=== PATIENT | female | born 1960 | race African-American/Black ===

== ENCOUNTER 2023-03-05 14:58 | Inpatient (IN) | payer OTHER ==
[2023-03-05 17:01] LABS: BASO % 0.8 % (0-2.0); EOS % 0.6 % (0-4.5); HEMATOCRIT 46.7 % (32.4-45.2); HEMOGLOBIN 14.4 GM/dL (10.7-15.3); LYMPH % 10.6 % (8-40); MCHC 30.8 g/dl (32.0-36.0); MEAN CELL VOLUME 87.4 fl (80-96); MONO % 11.5 % (3.8-10.2); NEUT % 76.5 % (42.8-82.8); PLATELET COUNT 137 10^3/uL (134-434); RBC 5.34 M/mm3 (3.60-5.2); WHITE BLOOD COUNT 4.9 K/mm3 (4.0-10.0)
[2023-03-05 17:03] LABS: INR 1.89 (0.83-1.09); PROTHROMBIN TIME (PATIENT) 21.8 SEC (9.7-13.0)
[2023-03-05 17:06] LABS: ACTIVATED PTT 32.8 SECONDS (25.2-36.5)
[2023-03-05 17:17] LABS: POTASSIUM 3.8 mmol/L (3.5-5.1)
[2023-03-05 17:19] LABS: CALCIUM 8.7 mg/dL (8.5-10.1)
[2023-03-05 17:20] LABS: ALBUMIN 2.4 g/dl (3.4-5.0); BLOOD UREA NITROGEN 8.1 mg/dL (7-18)
[2023-03-05 17:23] LABS: CREATININE 0.9 mg/dL (0.55-1.3)
[2023-03-05 17:24] LABS: BILIRUBIN,TOTAL 2.4 mg/dL (0.2-1); TOT PROT 7.9 g/dl (6.4-8.2)
[2023-03-05 17:28] LABS: N-TERMINAL BNP 1160.8 pg/ml (5-125)
[2023-03-05] MEDS ORDERED: AZITHROMYCIN IVPB 500 MG in DEXTROSE 5%-WATER - 250 ML IVPB ONE (18:16)
[2023-03-05] MEDS ORDERED: CEFTRIAXONE 1,000 MG in DEXTROSE 5%-WATER - 50 ML IVPB ONE (18:16)
[2023-03-05] MEDS ORDERED: CEFTRIAXONE 1 GM/50 ML BAG ONE (19:55)
[2023-03-05] MEDS ORDERED: FUROSEMIDE 40 MG/4 ML INJECTABLE VIAL IVPUSH ONE (20:33)
[2023-03-05] MEDS ORDERED: SODIUM CHLORIDE 0.9% 500 ML INFUS.BAG IV ONE (20:34)
[2023-03-05] MEDS ORDERED: FUROSEMIDE 40 MG/4 ML INJECTABLE VIAL ONE (20:42)
[2023-03-05] MEDS ORDERED: AZITHROMYCIN IVPB 500 MG/250 ML BAG IVPB ONE (20:42)
[2023-03-06 01:31] LABS: EPI CELLS >36 /uL (0-25.1); HYALINE CASTS 11 /uL (0-3.1); PH,URINE 5.5 (5.0-8.0); URINE APPEARANCE CLOUDY; URINE BACTERIA 53 /uL (0-1359); URINE BILIRUBIN 1+ (NEGATIVE); URINE COLOR DK YELLOW; URINE GLUCOSE (UA) NEGATIVE (NEGATIVE); URINE KETONE NEGATIVE (NEGATIVE); URINE LEUK ESTERASE 2+ (NEGATIVE); URINE NITRITE NEGATIVE (NEGATIVE); URINE PROTEIN 1+ (NEGATIVE); URINE RBC 51 /uL (0-23.9); URINE WBC 572 /uL (0-25.8)
[2023-03-06 03:44] LABS: YEAST NONE SEEN (NEGATIVE)
[2023-03-06 06:27] LABS: BASO % 0.3 % (0-2.0); EOS % 0.4 % (0-4.5); HEMATOCRIT 44.2 % (32.4-45.2); HEMOGLOBIN 13.8 GM/dL (10.7-15.3); LYMPH % 10.5 % (8-40); MCH 27.3 pg (25.7-33.7); MCHC 31.1 g/dl (32.0-36.0); MEAN CELL VOLUME 87.6 fl (80-96); MEAN PLT VOLUME 8.9 fl (7.5-11.1); MONO % 12.7 % (3.8-10.2); NEUT % 76.1 % (42.8-82.8); PLATELET COUNT 129 10^3/uL (134-434); RBC 5.04 M/mm3 (3.60-5.2); RDW 18.5 % (11.6-15.6)
[2023-03-06 06:49] LABS: POTASSIUM 3.1 mmol/L (3.5-5.1)
[2023-03-06 06:55] LABS: CALCIUM 8.9 mg/dL (8.5-10.1); MAGNESIUM 1.6 mg/dL (1.8-2.4)
[2023-03-06 06:56] LABS: ALBUMIN 2.4 g/dl (3.4-5.0)
[2023-03-06 06:58] LABS: CREATININE 0.8 mg/dL (0.55-1.3); PHOSPHOROUS 4.1 mg/dL (2.5-4.9)
[2023-03-06 07:00] LABS: BILIRUBIN,TOTAL 2.4 mg/dL (0.2-1); TOT PROT 7.4 g/dl (6.4-8.2)
[2023-03-06] MEDS ORDERED: AZITHROMYCIN IVPB 500 MG/250 ML BAG IVPB ONE (09:37)
[2023-03-06] MEDS ORDERED: CEFTRIAXONE 1 GM/50 ML BAG ONE (09:37)
[2023-03-06] MEDS: CEFTRIAXONE 1 GM in DEXTROSE 5%-WATER - 50 ML IVPB SCH (09:45)
[2023-03-06] MEDS ORDERED: POTASSIUM CHLORIDE TABS 20 MEQ TABLET.ER (FP) PO ONE ×2 (10:06→11:25)
[2023-03-06] MEDS ORDERED: MAGNESIUM 2GM/50ML STERILE WATER IVPB IVPB ONE (10:06)
[2023-03-06] MEDS: AZITHROMYCIN IVPB 500 MG/250 ML BAG IVPB SCH (10:12)
[2023-03-06] MEDS ORDERED: MAGNESIUM SULFATE IN WATER 2 GM/50 ML IVPB IVPB ONE (11:25)
[2023-03-06 14:59] VITALS: BMI 26.4
[2023-03-06] MEDS ORDERED: ALBUTEROL SO4 0.083% IH SOL 2.5 MG/3 ML VIAL.NEB. NEB PRN (16:11)
[2023-03-06] MEDS: ALBUTEROL SO4 2.5/IPRATROPIUM 0.5 INH SOL 3 ML VIAL.NEB. NEB SCH (20:12)
[2023-03-06] MEDS: ENOXAPARIN NA (PORCINE) 80 MG/0.8 ML DISP.SYRIN SQ SCH (21:21)
[2023-03-06] MEDS: methylPREDNISolone NA SUCC 40 MG/1 ML VIAL IVPUSH SCH (21:24)
[2023-03-07] MEDS: ALBUTEROL SO4 2.5/IPRATROPIUM 0.5 INH SOL 3 ML VIAL.NEB. NEB SCH ×2 (07:30→20:18)
[2023-03-07 07:51] LABS: POTASSIUM 4.4 mmol/L (3.5-5.1)
[2023-03-07 07:53] LABS: CALCIUM 9.2 mg/dL (8.5-10.1)
[2023-03-07 07:54] LABS: ALBUMIN 2.3 g/dl (3.4-5.0); BLOOD UREA NITROGEN 9.6 mg/dL (7-18)
[2023-03-07 07:57] LABS: CREATININE 0.8 mg/dL (0.55-1.3)
[2023-03-07 07:58] LABS: TOT PROT 7.5 g/dl (6.4-8.2)
[2023-03-07 07:59] LABS: BILIRUBIN,TOTAL 1.9 mg/dL (0.2-1)
[2023-03-07 08:01] LABS: INR 1.59 (0.83-1.09); PROTHROMBIN TIME (PATIENT) 18.4 SEC (9.7-13.0)
[2023-03-07 08:32] LABS: BASO % 0.1 % (0-2.0); HEMATOCRIT 47.7 % (32.4-45.2); HEMOGLOBIN 14.4 GM/dL (10.7-15.3); MCH 26.7 pg (25.7-33.7); MCHC 30.1 g/dl (32.0-36.0); MEAN CELL VOLUME 88.6 fl (80-96); MEAN PLT VOLUME 9.3 fl (7.5-11.1); MONO % 3.5 % (3.8-10.2); NEUT % 83.4 % (42.8-82.8); PLATELET COUNT 108 10^3/uL (134-434); RBC 5.39 M/mm3 (3.60-5.2); RDW 18.6 % (11.6-15.6); WHITE BLOOD COUNT 2.8 K/mm3 (4.0-10.0)
[2023-03-07] MEDS ORDERED: METOPROLOL TARTRATE 5 MG/5 ML VIAL IVPUSH ONE (09:25)
[2023-03-07] MEDS ORDERED: cefTRIAXone SODIUM 1 GM VIAL ONE (09:45)
[2023-03-07] MEDS: CEFTRIAXONE 1 GM in DEXTROSE 5%-WATER - 50 ML IVPB SCH (09:50)
[2023-03-07] MEDS: METOPROLOL TARTRATE 25 MG TABLET (FP) PO SCH ×2 (10:32→22:11)
[2023-03-07] MEDS: AZITHROMYCIN IVPB 500 MG/250 ML BAG IVPB SCH (10:33)
[2023-03-07] MEDS: methylPREDNISolone NA SUCC 40 MG/1 ML VIAL IVPUSH SCH ×2 (10:33→22:12)
[2023-03-07] MEDS: ENOXAPARIN NA (PORCINE) 80 MG/0.8 ML DISP.SYRIN SQ SCH ×2 (10:33→22:11)
[2023-03-07 12:16] LABS: BILIRUBIN,DIRECT 1.4 mg/dL (0.0-0.2)
[2023-03-07 16:40] LABS: BILIRUBIN,DIRECT 1.3 mg/dL (0.0-0.2)
[2023-03-07 16:43] LABS: BILIRUBIN,TOTAL 1.8 mg/dL (0.2-1)
[2023-03-08 07:01] LABS: BASO % 0.1 % (0-2.0); HEMATOCRIT 44.5 % (32.4-45.2); HEMOGLOBIN 13.7 GM/dL (10.7-15.3); LYMPH % 7.5 % (8-40); MCHC 30.8 g/dl (32.0-36.0); MEAN CELL VOLUME 87.6 fl (80-96); MEAN PLT VOLUME 9.5 fl (7.5-11.1); MONO % 4.6 % (3.8-10.2); NEUT % 87.8 % (42.8-82.8); PLATELET COUNT 112 10^3/uL (134-434); RBC 5.08 M/mm3 (3.60-5.2); RDW 18.5 % (11.6-15.6); WHITE BLOOD COUNT 5.8 K/mm3 (4.0-10.0)
[2023-03-08] MEDS: ALBUTEROL SO4 2.5/IPRATROPIUM 0.5 INH SOL 3 ML VIAL.NEB. NEB SCH ×2 (07:30→20:40)
[2023-03-08 07:34] LABS: POTASSIUM 4.2 mmol/L (3.5-5.1)
[2023-03-08 07:43] LABS: ALBUMIN 2.4 g/dl (3.4-5.0); BLOOD UREA NITROGEN 17.4 mg/dL (7-18); CALCIUM 9.1 mg/dL (8.5-10.1); MAGNESIUM 2.1 mg/dL (1.8-2.4)
[2023-03-08 07:46] LABS: CREATININE 0.9 mg/dL (0.55-1.3); PHOSPHOROUS 4.5 mg/dL (2.5-4.9)
[2023-03-08 07:47] LABS: TOT PROT 7.5 g/dl (6.4-8.2)
[2023-03-08 07:48] LABS: BILIRUBIN,TOTAL 1.5 mg/dL (0.2-1)
[2023-03-08] MEDS: METOPROLOL TARTRATE 25 MG TABLET (FP) PO SCH ×2 (09:36→22:18)
[2023-03-08] MEDS: ENOXAPARIN NA (PORCINE) 80 MG/0.8 ML DISP.SYRIN SQ SCH ×2 (09:37→22:18)
[2023-03-08] MEDS ORDERED: DIGOXIN 0.25 MG TABLET PO SCH (10:00)
[2023-03-08] MEDS ORDERED: FUROSEMIDE 40 MG/4 ML INJECTABLE VIAL IVPUSH SCH (10:00)
[2023-03-08 22:52] VITALS: BP 115/88; PULSE 100; RESP 20; TEMP 97.2
== END 2023-03-08 23:30 | disposition short-term general hospital (02) | DRG 139 ==
LOC: JER 14:58 → JERBED 20:36 → J4W 03-06 12:57
PROVIDERS: ADMIT Internal Medicine; ATTEND Internal Medicine
DX: J18.9 Pneumonia, unspecified organism (principal); I48.92 Unspecified atrial flutter; I26.99 Other pulmonary embolism without acute cor pulmonale; J96.01 Acute respiratory failure with hypoxia; I48.20 Chronic atrial fibrillation, unspecified; J44.0 Chronic obstructive pulmonary disease with (acute) lower respiratory infection; I11.0 Hypertensive heart disease with heart failure; I50.21 Acute systolic (congestive) heart failure; I27.20 Pulmonary hypertension, unspecified; E80.6 Other disorders of bilirubin metabolism; R91.8 Other nonspecific abnormal finding of lung field; I87.8 Other specified disorders of veins; R16.0 Hepatomegaly, not elsewhere classified; Z79.01 Long term (current) use of anticoagulants
CPT/HCPCS: 0241U-QW; 36415; 71045-TC-FY; 71275-TC; 76705-TC; 80053; 81003; 82247; 82248; 82550; 83735; 83880; 84100; 84443; 84484; 85025; 85610; 85730; 86704; 86706; 86708; 86803; 86850; 86900; 86901; 87340; 87635; 87899; 93005; 93010; 93306-TC; 94640; 99285-25; Q9967

== ENCOUNTER 2023-06-01 18:21 | Inpatient (IN) | payer OTHER ==
[2023-06-01] MEDS ORDERED: ALBUTEROL SO4 2.5/IPRATROPIUM 0.5 INH SOL 3 ML VIAL.NEB. NEB ONE ×2 (18:53→19:02)
[2023-06-01] MEDS ORDERED: FUROSEMIDE 40 MG/4 ML INJECTABLE VIAL IVPUSH ONE (19:23)
[2023-06-01 19:28] LABS: BASO % 0.5 % (0-2.0); EOS % 0.2 % (0-4.5); HEMATOCRIT 39.2 % (32.4-45.2); HEMOGLOBIN 12.2 GM/dL (10.7-15.3); LYMPH % 9.9 % (8-40); MCH 27.9 pg (25.7-33.7); MEAN CELL VOLUME 90.1 fl (80-96); MEAN PLT VOLUME 7.6 fl (7.5-11.1); MONO % 7.9 % (3.8-10.2); NEUT % 81.5 % (42.8-82.8); PLATELET COUNT 251 10^3/uL (134-434); RBC 4.35 M/mm3 (3.60-5.2); RDW 18.1 % (11.6-15.6); WHITE BLOOD COUNT 8.3 K/mm3 (4.0-10.0)
[2023-06-01 19:41] LABS: INR 1.6 (0.83-1.09); PROTHROMBIN TIME (PATIENT) 18.5 SEC (9.7-13.0)
[2023-06-01 19:44] LABS: ACTIVATED PTT 29.1 SECONDS (25.2-36.5)
[2023-06-01 19:49] LABS: POTASSIUM 3.3 mmol/L (3.5-5.1)
[2023-06-01 19:51] LABS: ALBUMIN 2.7 g/dl (3.4-5.0); CALCIUM 9.4 mg/dL (8.5-10.1)
[2023-06-01 19:52] LABS: BLOOD UREA NITROGEN 7.3 mg/dL (7-18)
[2023-06-01 19:54] LABS: CREATININE 0.8 mg/dL (0.55-1.3)
[2023-06-01 19:56] LABS: BILIRUBIN,TOTAL 1.2 mg/dL (0.2-1); TOT PROT 8.5 g/dl (6.4-8.2)
[2023-06-01 19:59] LABS: N-TERMINAL BNP 5215.8 pg/ml (5-125)
[2023-06-01] MEDS ORDERED: FUROSEMIDE 40 MG/4 ML INJECTABLE VIAL ONE (21:40)
[2023-06-01 23:02] LABS: EPI CELLS 12 /uL (0-25.1); HYALINE CASTS 0 /uL (0-3.1); URINE APPEARANCE CLEAR; URINE BACTERIA 32 /uL (0-1359); URINE BILIRUBIN NEGATIVE (NEGATIVE); URINE COLOR YELLOW; URINE GLUCOSE (UA) NEGATIVE (NEGATIVE); URINE KETONE NEGATIVE (NEGATIVE); URINE LEUK ESTERASE 3+ (NEGATIVE); URINE NITRITE NEGATIVE (NEGATIVE); URINE PROTEIN TRACE (NEGATIVE); URINE RBC 8 /uL (0-23.9); URINE UROBILINOGEN 0.2 mg/dL (0.2-1.0); URINE WBC 171 /uL (0-25.8)
[2023-06-02] MEDS ORDERED: POTASSIUM CHLORIDE TABS 20 MEQ TABLET.ER (FP) PO ONE ×2 (01:35→02:12)
[2023-06-02 04:28] VITALS: BMI 25.1
[2023-06-02] MEDS ORDERED: FUROSEMIDE 40 MG/4 ML INJECTABLE VIAL IVPUSH SCH (06:00)
[2023-06-02] MEDS ORDERED: FUROSEMIDE 40 MG/4 ML INJECTABLE VIAL IVPUSH ONE (06:10)
[2023-06-02 06:19] LABS: BASO % 0.8 % (0-2.0); EOS % 0.1 % (0-4.5); HEMATOCRIT 34.8 % (32.4-45.2); LYMPH % 10.2 % (8-40); MCHC 31.6 g/dl (32.0-36.0); MEAN CELL VOLUME 88.6 fl (80-96); MEAN PLT VOLUME 7.8 fl (7.5-11.1); NEUT % 77.9 % (42.8-82.8); PLATELET COUNT 209 10^3/uL (134-434); RBC 3.93 M/mm3 (3.60-5.2); RDW 17.8 % (11.6-15.6); WHITE BLOOD COUNT 8.2 K/mm3 (4.0-10.0)
[2023-06-02 06:36] LABS: POTASSIUM 3.1 mmol/L (3.5-5.1)
[2023-06-02 06:38] LABS: CALCIUM 8.5 mg/dL (8.5-10.1)
[2023-06-02 06:39] LABS: ALBUMIN 2.4 g/dl (3.4-5.0); BLOOD UREA NITROGEN 7.6 mg/dL (7-18); MAGNESIUM 1.8 mg/dL (1.8-2.4)
[2023-06-02 06:42] LABS: CREATININE 0.7 mg/dL (0.55-1.3); PHOSPHOROUS 3.7 mg/dL (2.5-4.9)
[2023-06-02 06:44] LABS: BILIRUBIN,TOTAL 1.2 mg/dL (0.2-1); TOT PROT 7.4 g/dl (6.4-8.2)
[2023-06-02] MEDS ORDERED: POTASSIUM CHLORIDE ORAL LIQUID 20 MEQ/15 ML PO ONE (06:44)
[2023-06-02] MEDS: KCL 10 MEQ IVPB 10 MEQ/100 ML INFUS.BAG IVPB SCH ×3 (07:03→10:21)
[2023-06-02] MEDS: DIGOXIN 0.125 MG TABLET PO SCH (09:48)
[2023-06-02] MEDS: APIXABAN 5 MG TABLET PO SCH ×2 (09:48→21:33)
[2023-06-02] MEDS: AMIODARONE HCL 200 MG TABLET PO SCH (09:48)
[2023-06-02] MEDS: metoPROLOL SUCCINATE 25 MG TAB.SR.24H (FP) PO SCH (09:49)
[2023-06-02 13:35] LABS: CALCIUM 9.1 mg/dL (8.5-10.1)
[2023-06-02 13:36] LABS: BLOOD UREA NITROGEN 9.2 mg/dL (7-18)
[2023-06-02 13:39] LABS: CREATININE 0.8 mg/dL (0.55-1.3)
[2023-06-02] MEDS: FUROSEMIDE 40 MG/4 ML INJECTABLE VIAL IVPUSH SCH (14:40)
[2023-06-03] MEDS: FUROSEMIDE 40 MG/4 ML INJECTABLE VIAL IVPUSH SCH ×2 (06:18→13:40)
[2023-06-03 07:16] LABS: BASO % 0.3 % (0-2.0); EOS % 1.1 % (0-4.5); HEMATOCRIT 36.2 % (32.4-45.2); HEMOGLOBIN 11.5 GM/dL (10.7-15.3); LYMPH % 15.8 % (8-40); MCH 28.3 pg (25.7-33.7); MCHC 31.8 g/dl (32.0-36.0); MEAN CELL VOLUME 89.1 fl (80-96); MEAN PLT VOLUME 8.4 fl (7.5-11.1); NEUT % 73.8 % (42.8-82.8); PLATELET COUNT 211 10^3/uL (134-434); RBC 4.07 M/mm3 (3.60-5.2); RDW 17.7 % (11.6-15.6); WHITE BLOOD COUNT 6.4 K/mm3 (4.0-10.0)
[2023-06-03 07:30] LABS: POTASSIUM 3.6 mmol/L (3.5-5.1)
[2023-06-03 07:35] LABS: ALBUMIN 2.5 g/dl (3.4-5.0); BLOOD UREA NITROGEN 12.2 mg/dL (7-18); MAGNESIUM 1.6 mg/dL (1.8-2.4)
[2023-06-03 07:38] LABS: PHOSPHOROUS 3.5 mg/dL (2.5-4.9)
[2023-06-03 07:39] LABS: CREATININE 0.8 mg/dL (0.55-1.3)
[2023-06-03 07:40] LABS: TOT PROT 7.7 g/dl (6.4-8.2)
[2023-06-03] MEDS: DIGOXIN 0.125 MG TABLET PO SCH (09:39)
[2023-06-03] MEDS: AMIODARONE HCL 200 MG TABLET PO SCH (09:40)
[2023-06-03] MEDS: metoPROLOL SUCCINATE 25 MG TAB.SR.24H (FP) PO SCH ×2 (09:40→09:41)
[2023-06-03] MEDS: POTASSIUM CHLORIDE TABS 20 MEQ TABLET.ER (FP) PO SCH (09:40)
[2023-06-03] MEDS: APIXABAN 5 MG TABLET PO SCH ×2 (09:40→21:41)
[2023-06-04] MEDS: FUROSEMIDE 40 MG/4 ML INJECTABLE VIAL IVPUSH SCH ×2 (05:59→14:57)
[2023-06-04] MEDS ORDERED: MAGNESIUM 2GM/50ML STERILE WATER IVPB IVPB ONE (09:03)
[2023-06-04] MEDS: APIXABAN 5 MG TABLET PO SCH ×2 (10:29→21:32)
[2023-06-04] MEDS: metoPROLOL SUCCINATE 25 MG TAB.SR.24H (FP) PO SCH (10:29)
[2023-06-04] MEDS: AMIODARONE HCL 200 MG TABLET PO SCH (10:29)
[2023-06-04] MEDS: DIGOXIN 0.125 MG TABLET PO SCH (10:29)
[2023-06-04] MEDS: POTASSIUM CHLORIDE TABS 20 MEQ TABLET.ER (FP) PO SCH (10:29)
[2023-06-04] MEDS ORDERED: ACETAMINOPHEN 325 MG TABLET (FP) PO PRN ×2 (17:28→17:40)
[2023-06-05] MEDS: FUROSEMIDE 40 MG/4 ML INJECTABLE VIAL IVPUSH SCH (06:14)
[2023-06-05 07:56] LABS: HEMATOCRIT 38.3 % (32.4-45.2); HEMOGLOBIN 12.2 GM/dL (10.7-15.3); MCH 28.2 pg (25.7-33.7); MCHC 31.8 g/dl (32.0-36.0); MEAN CELL VOLUME 88.8 fl (80-96); MEAN PLT VOLUME 8.7 fl (7.5-11.1); PLATELET COUNT 245 10^3/uL (134-434); RBC 4.32 M/mm3 (3.60-5.2); RDW 17.1 % (11.6-15.6)
[2023-06-05 08:07] LABS: CHLORIDE 96 mmol/L (98-107); SODIUM 132 mmol/L (136-145)
[2023-06-05 08:18] LABS: CALCIUM 9.5 mg/dL (8.5-10.1)
[2023-06-05 08:19] LABS: ALBUMIN 2.4 g/dl (3.4-5.0); BLOOD UREA NITROGEN 15.6 mg/dL (7-18); CO2 31 mmol/L (21-32); GLUCOSE,RANDOM 73 mg/dL (74-106); MAGNESIUM 2.3 mg/dL (1.8-2.4)
[2023-06-05 08:22] LABS: CREATININE 0.8 mg/dL (0.55-1.3); PHOSPHOROUS 4.7 mg/dL (2.5-4.9); TOT PROT 9.2 g/dl (6.4-8.2)
[2023-06-05 08:23] LABS: BILIRUBIN,TOTAL 0.6 mg/dL (0.2-1)
[2023-06-05 08:24] LABS: ALK PHOS 122 U/L (45-117)
[2023-06-05 08:34] LABS: ANION GAP 5 mmol/L (4-13); POTASSIUM 8.6 mmol/L (3.5-5.1); SGOT/AST 86 U/L (15-37); SGPT/ALT 14 U/L (13-61)
[2023-06-05] MEDS ORDERED: FUROSEMIDE 40 MG/4 ML INJECTABLE VIAL IVPUSH SCH ×2 (08:47→09:10)
[2023-06-05] MEDS: AMIODARONE HCL 200 MG TABLET PO SCH (11:00)
[2023-06-05] MEDS: POTASSIUM CHLORIDE TABS 20 MEQ TABLET.ER (FP) PO SCH (11:00)
[2023-06-05] MEDS: DIGOXIN 0.125 MG TABLET PO SCH (11:00)
[2023-06-05] MEDS: APIXABAN 5 MG TABLET PO SCH ×2 (11:00→21:58)
[2023-06-05] MEDS ORDERED: metoPROLOL SUCCINATE 25 MG TAB.SR.24H (FP) PO SCH (11:05)
[2023-06-05] MEDS: metoPROLOL SUCCINATE 25 MG TAB.SR.24H (FP) PO SCH (11:05)
[2023-06-05 11:31] LABS: POTASSIUM 3.5 mmol/L (3.5-5.1)
[2023-06-05 11:34] LABS: CALCIUM 9.3 mg/dL (8.5-10.1)
[2023-06-05 11:35] LABS: BLOOD UREA NITROGEN 16.3 mg/dL (7-18)
[2023-06-05 11:38] LABS: CREATININE 0.8 mg/dL (0.55-1.3)
[2023-06-05] MEDS ORDERED: metoPROLOL SUCCINATE 25 MG TAB.SR.24H (FP) PO ONE (11:52)
[2023-06-06 03:05] VITALS: RESP 18
[2023-06-06 08:12] LABS: HEMATOCRIT 36.6 % (32.4-45.2); HEMOGLOBIN 11.5 GM/dL (10.7-15.3); MCHC 31.4 g/dl (32.0-36.0); MEAN PLT VOLUME 8.6 fl (7.5-11.1); PLATELET COUNT 217 10^3/uL (134-434); RBC 4.11 M/mm3 (3.60-5.2); RDW 17.3 % (11.6-15.6); WHITE BLOOD COUNT 5.3 K/mm3 (4.0-10.0)
[2023-06-06 08:23] LABS: POTASSIUM 3.9 mmol/L (3.5-5.1)
[2023-06-06 08:26] LABS: ALBUMIN 2.3 g/dl (3.4-5.0); BLOOD UREA NITROGEN 19.1 mg/dL (7-18); CALCIUM 9.1 mg/dL (8.5-10.1); MAGNESIUM 1.9 mg/dL (1.8-2.4)
[2023-06-06 08:29] LABS: CREATININE 0.7 mg/dL (0.55-1.3); PHOSPHOROUS 4.3 mg/dL (2.5-4.9)
[2023-06-06 08:31] LABS: BILIRUBIN,TOTAL 0.4 mg/dL (0.2-1); TOT PROT 7.3 g/dl (6.4-8.2)
[2023-06-06] MEDS ORDERED: TORSEMIDE 20 MG TABLET (FP) PO SCH (10:00)
[2023-06-06] MEDS: DIGOXIN 0.125 MG TABLET PO SCH (10:22)
[2023-06-06] MEDS: APIXABAN 5 MG TABLET PO SCH (10:22)
[2023-06-06] MEDS: POTASSIUM CHLORIDE TABS 20 MEQ TABLET.ER (FP) PO SCH (10:23)
[2023-06-06] MEDS: AMIODARONE HCL 200 MG TABLET PO SCH (10:23)
[2023-06-06 13:49] VITALS: BP 96/66; PULSE 76; TEMP 98.2
== END 2023-06-06 16:42 | disposition home or self-care (01) | DRG 194 ==
LOC: JER 18:21 → JERBED 23:56 → OBSVTOIN 06-02 01:01 → J4W 06-02 03:33
PROVIDERS: ADMIT Internal Medicine; ATTEND Internal Medicine
DX: I11.0 Hypertensive heart disease with heart failure (principal); I50.33 Acute on chronic diastolic (congestive) heart failure; I48.91 Unspecified atrial fibrillation; J96.01 Acute respiratory failure with hypoxia; I48.92 Unspecified atrial flutter; E87.6 Hypokalemia; I27.24 Chronic thromboembolic pulmonary hypertension; J44.9 Chronic obstructive pulmonary disease, unspecified; Z59.01 Sheltered homelessness; Z91.148 Patient's other noncompliance with medication regimen for other reason; Z86.711 Personal history of pulmonary embolism
CPT/HCPCS: 0241U-QW; 36415; 71045-TC-FY; 71275-TC; 80048; 80053; 81003; 82550; 82962; 83735; 83880; 84100; 84484; 85025; 85027; 85610; 85730; 87070; 87205; 93005; 93010; 93306-TC; 94010; 94761; 97116-GP; 97162-GP; 99285-25; G0378; Q9967

== ENCOUNTER 2023-08-31 13:40 | Inpatient (IN) | payer OTHER ==
[2023-08-31 14:07] VITALS: BMI 33.3
[2023-08-31 15:03] LABS: BASO % 0.5 % (0-2.0); EOS % 0.5 % (0-4.5); HEMATOCRIT 39.2 % (32.4-45.2); HEMOGLOBIN 12.4 GM/dL (10.7-15.3); LYMPH % 22.9 % (8-40); MCH 25.6 pg (25.7-33.7); MCHC 31.6 g/dl (32.0-36.0); MEAN CELL VOLUME 80.8 fl (80-96); MEAN PLT VOLUME 7.3 fl (7.5-11.1); MONO % 10.4 % (3.8-10.2); NEUT % 65.7 % (42.8-82.8); PLATELET COUNT 160 10^3/uL (134-434); RBC 4.85 M/mm3 (3.60-5.2); WHITE BLOOD COUNT 3.5 K/mm3 (4.0-10.0)
[2023-08-31 15:09] LABS: INR 1.08 (0.83-1.09); PROTHROMBIN TIME (PATIENT) 12.5 SEC (9.7-13.0)
[2023-08-31 15:11] LABS: ACTIVATED PTT 26.1 SECONDS (25.2-36.5)
[2023-08-31 15:20] LABS: EPI CELLS 23 /uL (0-25.1); HYALINE CASTS 1 /uL (0-3.1); PH,URINE 5.5 (5.0-8.0); URINE APPEARANCE CLOUDY; URINE BACTERIA 168 /uL (0-1359); URINE BILIRUBIN NEGATIVE (NEGATIVE); URINE COLOR YELLOW; URINE GLUCOSE (UA) NEGATIVE (NEGATIVE); URINE KETONE NEGATIVE (NEGATIVE); URINE LEUK ESTERASE 2+ (NEGATIVE); URINE NITRITE NEGATIVE (NEGATIVE); URINE PROTEIN 2+ (NEGATIVE); URINE RBC 19 /uL (0-23.9); URINE WBC 202 /uL (0-25.8)
[2023-08-31 15:23] LABS: POTASSIUM 3.3 mmol/L (3.5-5.1)
[2023-08-31 15:25] LABS: MAGNESIUM 1.7 mg/dL (1.8-2.4)
[2023-08-31 15:26] LABS: BLOOD UREA NITROGEN 8.6 mg/dL (7-18)
[2023-08-31 15:28] LABS: CREATININE 0.8 mg/dL (0.55-1.3)
[2023-08-31 15:30] LABS: BILIRUBIN,TOTAL 1.2 mg/dL (0.2-1); TOT PROT 8.4 g/dl (6.4-8.2)
[2023-08-31 15:34] LABS: VENOUS BASE EXCESS 2.3 mmol/L (-2-2); VENOUS PCO2 46.1 mmHg (38-52); VENOUS PH 7.398 (7.310-7.410)
[2023-08-31] MEDS ORDERED: POTASSIUM CHLORIDE ORAL LIQUID 20 MEQ/15 ML ONE (15:46)
[2023-08-31] MEDS ORDERED: MAGNESIUM 1GM/D5W - 1 GM/100 ML IVPB IVPB ONE (15:46)
[2023-08-31] MEDS: POTASSIUM CHLORIDE ORAL LIQUID 20 MEQ/15 ML PO ONE (15:56)
[2023-08-31] MEDS: MAGNESIUM SULF 50% (8.12 MEQ/2 ML-1 GM VIAL) IVPB ONE (15:56)
[2023-08-31] MEDS ORDERED: CEFTRIAXONE 1 GM/50 ML BAG ONE (16:26)
[2023-08-31] MEDS ORDERED: METOPROLOL TARTRATE 25 MG TABLET (FP) ONE (16:26)
[2023-08-31] MEDS ORDERED: AMIODARONE HCL 200 MG TABLET ONE (16:26)
[2023-08-31] MEDS: CEFTRIAXONE 1,000 MG in DEXTROSE 5%-WATER - 50 ML IVPB ONE (16:34)
[2023-08-31] MEDS: METOPROLOL TARTRATE 25 MG TABLET (FP) PO ONE (16:34)
[2023-08-31] MEDS: AMIODARONE HCL 200 MG TABLET PO ONE (16:34)
[2023-08-31] MEDS ORDERED: AZITHROMYCIN IVPB 500 MG/250 ML BAG IVPB ONE (18:33)
[2023-08-31] MEDS: AZITHROMYCIN IVPB 500 MG in DEXTROSE 5%-WATER - 250 ML IVPB ONE (18:53)
[2023-08-31 23:14] LABS: N-TERMINAL BNP 1544.6 pg/ml (5-125)
[2023-08-31] MEDS: FUROSEMIDE 40 MG/4 ML INJECTABLE VIAL IVPUSH ONE (23:39)
[2023-09-01] MEDS ORDERED: FUROSEMIDE 40 MG/4 ML INJECTABLE VIAL ONE (06:00)
[2023-09-01 08:24] LABS: BASO % 0.9 % (0-2.0); EOS % 0.3 % (0-4.5); HEMATOCRIT 36.3 % (32.4-45.2); HEMOGLOBIN 11.3 GM/dL (10.7-15.3); LYMPH % 22.2 % (8-40); MCH 25.3 pg (25.7-33.7); MCHC 31.2 g/dl (32.0-36.0); MEAN CELL VOLUME 81.2 fl (80-96); MEAN PLT VOLUME 8.4 fl (7.5-11.1); NEUT % 59.6 % (42.8-82.8); PLATELET COUNT 132 10^3/uL (134-434); RBC 4.47 M/mm3 (3.60-5.2); RDW 18.8 % (11.6-15.6)
[2023-09-01 08:27] LABS: POTASSIUM 3.9 mmol/L (3.5-5.1)
[2023-09-01 08:29] LABS: CALCIUM 8.4 mg/dL (8.5-10.1)
[2023-09-01 08:31] LABS: ALBUMIN 2.5 g/dl (3.4-5.0); BLOOD UREA NITROGEN 6.2 mg/dL (7-18); MAGNESIUM 2.1 mg/dL (1.8-2.4)
[2023-09-01 08:34] LABS: CREATININE 0.7 mg/dL (0.55-1.3)
[2023-09-01 08:36] LABS: BILIRUBIN,TOTAL 1.6 mg/dL (0.2-1); TOT PROT 7.4 g/dl (6.4-8.2)
[2023-09-01] MEDS: FUROSEMIDE 40 MG/4 ML INJECTABLE VIAL IVPUSH SCH (09:28)
[2023-09-01] MEDS: DIGOXIN 0.125 MG TABLET PO SCH (20:53)
[2023-09-01] MEDS: AMIODARONE HCL 200 MG TABLET PO SCH (20:53)
[2023-09-01] MEDS: APIXABAN 5 MG TABLET PO SCH (20:53)
[2023-09-01] MEDS: metoPROLOL SUCCINATE 25 MG TAB.SR.24H (FP) PO SCH (20:54)
[2023-09-02 08:32] LABS: POTASSIUM 3.2 mmol/L (3.5-5.1)
[2023-09-02 08:37] LABS: BASO % 0.4 % (0-2.0); EOS % 1.2 % (0-4.5); HEMATOCRIT 34.8 % (32.4-45.2); HEMOGLOBIN 11.1 GM/dL (10.7-15.3); LYMPH % 24.7 % (8-40); MCH 25.8 pg (25.7-33.7); MCHC 31.9 g/dl (32.0-36.0); MEAN CELL VOLUME 80.9 fl (80-96); MEAN PLT VOLUME 8.2 fl (7.5-11.1); MONO % 13.7 % (3.8-10.2); PLATELET COUNT 123 10^3/uL (134-434); RBC 4.31 M/mm3 (3.60-5.2); RDW 19.3 % (11.6-15.6); WHITE BLOOD COUNT 4.1 K/mm3 (4.0-10.0)
[2023-09-02 08:49] LABS: CALCIUM 8.4 mg/dL (8.5-10.1)
[2023-09-02 08:50] LABS: ALBUMIN 2.3 g/dl (3.4-5.0); BLOOD UREA NITROGEN 10.1 mg/dL (7-18); MAGNESIUM 1.9 mg/dL (1.8-2.4)
[2023-09-02 08:54] LABS: PHOSPHOROUS 3.1 mg/dL (2.5-4.9)
[2023-09-02 08:55] LABS: BILIRUBIN,TOTAL 1.2 mg/dL (0.2-1); CREATININE 0.8 mg/dL (0.55-1.3)
[2023-09-02 08:57] LABS: TOT PROT 6.8 g/dl (6.4-8.2)
[2023-09-02] MEDS: POTASSIUM CHLORIDE TABS 20 MEQ TABLET.ER (FP) PO ONE (09:48)
[2023-09-02] MEDS ORDERED: TORSEMIDE 20 MG TABLET (FP) PO SCH (10:00)
[2023-09-03 07:38] LABS: BASO % 0.6 % (0-2.0); EOS % 1.2 % (0-4.5); HEMATOCRIT 40.3 % (32.4-45.2); HEMOGLOBIN 13.1 GM/dL (10.7-15.3); LYMPH % 27.7 % (8-40); MCH 26.1 pg (25.7-33.7); MCHC 32.5 g/dl (32.0-36.0); MEAN CELL VOLUME 80.5 fl (80-96); MEAN PLT VOLUME 8.1 fl (7.5-11.1); MONO % 12.6 % (3.8-10.2); NEUT % 57.9 % (42.8-82.8); PLATELET COUNT 151 10^3/uL (134-434); RBC 5.01 M/mm3 (3.60-5.2); RDW 19.6 % (11.6-15.6); WHITE BLOOD COUNT 3.7 K/mm3 (4.0-10.0)
[2023-09-03 08:02] LABS: BLOOD UREA NITROGEN 10.1 mg/dL (7-18); CALCIUM 9.1 mg/dL (8.5-10.1)
[2023-09-03 08:03] LABS: ALBUMIN 2.6 g/dl (3.4-5.0)
[2023-09-03 08:06] LABS: CREATININE 0.8 mg/dL (0.55-1.3); PHOSPHOROUS 3.7 mg/dL (2.5-4.9)
[2023-09-03 08:08] LABS: BILIRUBIN,TOTAL 1.8 mg/dL (0.2-1); TOT PROT 8.4 g/dl (6.4-8.2)
[2023-09-03 08:09] LABS: POTASSIUM 5.5 mmol/L (3.5-5.1)
[2023-09-03 09:57] LABS: POTASSIUM 3.3 mmol/L (3.5-5.1)
[2023-09-03 10:00] LABS: ALBUMIN 2.4 g/dl (3.4-5.0); BLOOD UREA NITROGEN 10.3 mg/dL (7-18); CALCIUM 8.4 mg/dL (8.5-10.1); MAGNESIUM 1.9 mg/dL (1.8-2.4)
[2023-09-03 10:03] LABS: CREATININE 0.9 mg/dL (0.55-1.3)
[2023-09-03 10:05] LABS: TOT PROT 7.4 g/dl (6.4-8.2)
[2023-09-03 10:56] VITALS: RESP 20
[2023-09-03] MEDS: POTASSIUM CHLORIDE ORAL LIQUID 20 MEQ/15 ML PO ONE (11:10)
[2023-09-03] MEDS: POTASSIUM CHLORIDE TABS 20 MEQ TABLET.ER (FP) PO ONE (13:57)
[2023-09-03 15:00] VITALS: BP 107/76; PULSE 86; TEMP 98.2
== END 2023-09-03 16:09 | disposition home or self-care (01) | DRG 194 ==
LOC: JER 13:40 → JERBED 18:28 → J4W 19:54 → OBSVTOIN 20:42
PROVIDERS: ADMIT Student in an Organized Health Care Education/Training Program; ATTEND Internal Medicine
DX: I11.0 Hypertensive heart disease with heart failure (principal); I27.21 Secondary pulmonary arterial hypertension; I48.92 Unspecified atrial flutter; I48.91 Unspecified atrial fibrillation; N39.0 Urinary tract infection, site not specified; R55 Syncope and collapse; E83.42 Hypomagnesemia; E87.6 Hypokalemia; Z59.00 Homelessness unspecified; I50.33 Acute on chronic diastolic (congestive) heart failure
CPT/HCPCS: 0241U-QW; 36415; 70450-TC; 71045-TC-FY; 71275-TC; 80053; 80162; 81003; 82803; 82962; 83735; 83880; 84100; 84443; 84484; 85025; 85610; 85730; 86850; 86900; 86901; 87086; 87186; 93005; 93010; 93306-TC; 97116-GP; 97161-GP; 99285-25; G0378; Q9967

== ENCOUNTER 2023-12-27 09:35 | Observation (INO) | payer OTHER ==
[2023-12-27 12:36] LABS: BASO % 0.6 % (0-2.0); EOS % 0.6 % (0-4.5); HEMATOCRIT 36.2 % (32.4-45.2); HEMOGLOBIN 11.9 GM/dL (10.7-15.3); LYMPH % 22.2 % (8-40); MCH 31.6 pg (25.7-33.7); MEAN PLT VOLUME 7.8 fl (7.5-11.1); MONO % 14.8 % (3.8-10.2); NEUT % 61.8 % (42.8-82.8); PLATELET COUNT 133 10^3/uL (134-434); RBC 3.77 M/mm3 (3.60-5.2); RDW 20.6 % (11.6-15.6); WHITE BLOOD COUNT 3.6 K/mm3 (4.0-10.0)
[2023-12-27 12:42] LABS: ACTIVATED PTT 29.3 SECONDS (25.2-36.5); INR 1.01 (0.83-1.09); PROTHROMBIN TIME (PATIENT) 11.6 SEC (9.7-13.0)
[2023-12-27 12:43] LABS: POTASSIUM 3.8 mmol/L (3.5-5.1)
[2023-12-27 12:45] LABS: ALBUMIN 3.1 g/dl (3.4-5.0); BLOOD UREA NITROGEN 17.2 mg/dL (7-18); CALCIUM 9.2 mg/dL (8.5-10.1)
[2023-12-27 12:49] LABS: CREATININE 0.9 mg/dL (0.55-1.3)
[2023-12-27 12:50] LABS: TOT PROT 7.5 g/dl (6.4-8.2)
[2023-12-27 12:53] LABS: N-TERMINAL BNP 1854.3 pg/ml (5-125)
[2023-12-27 13:11] LABS: ANISOCYTOSIS 1+; MACROCYTOSIS 1+
[2023-12-28] MEDS ORDERED: ENOXAPARIN NA (PORCINE) 80 MG/0.8 ML DISP.SYRIN SQ ONE (00:03)
[2023-12-28] MEDS: ENOXAPARIN NA (PORCINE) 80 MG/0.8 ML DISP.SYRIN SQ SCH (00:07)
[2023-12-28] MEDS: hydrALAZINE HCL 20 MG/ML VIAL IVPUSH ONE (06:31)
[2023-12-28 06:38] LABS: HEMATOCRIT 35.8 % (32.4-45.2); HEMOGLOBIN 11.9 GM/dL (10.7-15.3); MCH 31.9 pg (25.7-33.7); MCHC 33.2 g/dl (32.0-36.0); MEAN CELL VOLUME 96.3 fl (80-96); MEAN PLT VOLUME 8.1 fl (7.5-11.1); PLATELET COUNT 135 10^3/uL (134-434); RBC 3.71 M/mm3 (3.60-5.2); RDW 19.9 % (11.6-15.6); WHITE BLOOD COUNT 4.6 K/mm3 (4.0-10.0)
[2023-12-28 06:53] LABS: POTASSIUM 3.6 mmol/L (3.5-5.1)
[2023-12-28 06:55] LABS: ALBUMIN 3.2 g/dl (3.4-5.0); BLOOD UREA NITROGEN 11.4 mg/dL (7-18); CALCIUM 8.6 mg/dL (8.5-10.1)
[2023-12-28 06:59] LABS: CREATININE 0.8 mg/dL (0.55-1.3)
[2023-12-28 07:00] LABS: BILIRUBIN,TOTAL 1.7 mg/dL (0.2-1); TOT PROT 7.6 g/dl (6.4-8.2)
[2023-12-28] MEDS: TORSEMIDE 20 MG TABLET (FP) PO SCH (10:28)
[2023-12-28] MEDS: metoPROLOL SUCCINATE 25 MG TAB.SR.24H (FP) PO SCH (10:28)
[2023-12-28] MEDS: AMIODARONE HCL 200 MG TABLET PO SCH (10:28)
[2023-12-28 11:00] VITALS: BMI 22.1
[2023-12-28 11:39] LABS: BILIRUBIN,DIRECT 0.6 mg/dL (0.0-0.2)
[2023-12-28] MEDS: ALBUTEROL SO4 2.5/IPRATROPIUM 0.5 INH SOL 3 ML VIAL.NEB. NEB SCH (16:45)
[2023-12-28] MEDS: APIXABAN 5 MG TABLET PO SCH (21:51)
[2023-12-28] MEDS: methylPREDNISolone NA SUCC 40 MG/1 ML VIAL IVPUSH SCH (21:52)
[2023-12-29 02:19] VITALS: RESP 20
[2023-12-29 06:32] VITALS: TEMP 98.1
[2023-12-29 12:27] VITALS: BP 119/82; PULSE 83
== END 2023-12-29 14:30 | disposition home or self-care (01) ==
LOC: JER 09:35 → JERBED 15:37 → INTOOBSV 15:37 → UNDOADMOB 15:37 → JERBED 16:52 → J4W 12-28 08:59
PROVIDERS: ADMIT Internal Medicine; ATTEND Internal Medicine
PROC: 3E0F7GC Introduction of Other Therapeutic Substance into Respiratory Tract, Via Natural or Artificial Opening (ICD-10-PCS; principal; 2023-12-27)
PROC: 3E023GC Introduction of Other Therapeutic Substance into Muscle, Percutaneous Approach (ICD-10-PCS; 2023-12-27)
PROC: 3E033GC Introduction of Other Therapeutic Substance into Peripheral Vein, Percutaneous Approach (ICD-10-PCS; 2023-12-27)
DX: I27.24 Chronic thromboembolic pulmonary hypertension (principal); I50.9 Heart failure, unspecified; Z86.711 Personal history of pulmonary embolism; Z79.01 Long term (current) use of anticoagulants; I48.91 Unspecified atrial fibrillation
CPT/HCPCS: 0241U-QW; 36415; 71046-TC-FY; 71275-TC; 76705-TC; 80053; 82248; 83880; 84484; 85025; 85027; 85610; 85730; 94640; 94761; 96372; 96374; 96375; 99285-25; G0378; Q9967

== ENCOUNTER 2024-02-11 04:30 | Inpatient (IN) | payer OTHER ==
[2024-02-11 04:36] VITALS: BMI 28.3
[2024-02-11 06:12] LABS: PLATELET COUNT 140 10^3/uL (134-434); WHITE BLOOD COUNT 4.7 K/mm3 (4.0-10.0)
[2024-02-11 06:14] LABS: BASO % 0.9 % (0-2.0); EOS % 0.7 % (0-4.5); HEMATOCRIT 40.4 % (32.4-45.2); HEMOGLOBIN 12.9 GM/dL (10.7-15.3); MCH 32.1 pg (25.7-33.7); MEAN CELL VOLUME 100.3 fl (80-96); MEAN PLT VOLUME 8.5 fl (7.5-11.1); MONO % 8.3 % (3.8-10.2); NEUT % 74.1 % (42.8-82.8); RBC 4.03 M/mm3 (3.60-5.2); RDW 16.8 % (11.6-15.6)
[2024-02-11 07:01] LABS: POTASSIUM 3.7 mmol/L (3.5-5.1)
[2024-02-11 07:03] LABS: CALCIUM 9.2 mg/dL (8.5-10.1)
[2024-02-11 07:04] LABS: ALBUMIN 3.6 g/dl (3.4-5.0); BLOOD UREA NITROGEN 14.2 mg/dL (7-18)
[2024-02-11 07:07] LABS: CREATININE 0.9 mg/dL (0.55-1.3)
[2024-02-11 07:19] LABS: ACTIVATED PTT 26.9 SECONDS (25.2-36.5); INR 1.15 (0.83-1.09); PROTHROMBIN TIME (PATIENT) 12.9 SEC (9.7-13.0)
[2024-02-11] MEDS ORDERED: CEFTRIAXONE 1 GM/50 ML BAG ONE (08:30)
[2024-02-11] MEDS ORDERED: ALBUTEROL SO4 2.5/IPRATROPIUM 0.5 INH SOL 3 ML VIAL.NEB. NEB ONE (08:30)
[2024-02-11] MEDS ORDERED: AZITHROMYCIN IVPB 500 MG/250 ML BAG IVPB ONE (08:31)
[2024-02-11] MEDS: ALBUTEROL SO4 2.5/IPRATROPIUM 0.5 INH SOL 3 ML VIAL.NEB. NEB ONE ×3 (08:41→09:26)
[2024-02-11] MEDS: CEFTRIAXONE 1,000 MG in DEXTROSE 5%-WATER - 50 ML IVPB ONE (08:41)
[2024-02-11] MEDS: AZITHROMYCIN IVPB 500 MG in DEXTROSE 5%-WATER - 250 ML IVPB ONE (09:32)
[2024-02-11] MEDS: APIXABAN 5 MG TABLET PO SCH (22:53)
[2024-02-11] MEDS: DOXYCYCLINE INJECTION 100 MG in DEXTROSE 5%-WATER 100 ML IVPB SCH (22:53)
[2024-02-12 08:41] LABS: BASO % 0.6 % (0-2.0); EOS % 0.8 % (0-4.5); HEMATOCRIT 35.2 % (32.4-45.2); HEMOGLOBIN 11.6 GM/dL (10.7-15.3); MCH 32.5 pg (25.7-33.7); MCHC 32.9 g/dl (32.0-36.0); MEAN CELL VOLUME 98.8 fl (80-96); MEAN PLT VOLUME 9.1 fl (7.5-11.1); MONO % 17.1 % (3.8-10.2); NEUT % 61.5 % (42.8-82.8); PLATELET COUNT 113 10^3/uL (134-434); RBC 3.57 M/mm3 (3.60-5.2); RDW 16.3 % (11.6-15.6); WHITE BLOOD COUNT 3.7 K/mm3 (4.0-10.0)
[2024-02-12 09:00] LABS: POTASSIUM 3.2 mmol/L (3.5-5.1)
[2024-02-12 09:15] LABS: BLOOD UREA NITROGEN 9.2 mg/dL (7-18); CALCIUM 8.8 mg/dL (8.5-10.1)
[2024-02-12 09:19] LABS: CREATININE 0.7 mg/dL (0.55-1.3)
[2024-02-12] MEDS: metoPROLOL SUCCINATE 25 MG TAB.SR.24H (FP) PO SCH (09:55)
[2024-02-12] MEDS: TORSEMIDE 20 MG TABLET (FP) PO SCH (09:55)
[2024-02-12] MEDS: POTASSIUM CHLORIDE TABS 10 MEQ TABLET.ER (FP) PO SCH (09:56)
[2024-02-12] MEDS: CEFTRIAXONE 1 GM in DEXTROSE 5%-WATER - 50 ML IVPB SCH (09:56)
[2024-02-12] MEDS: AMIODARONE HCL 200 MG TABLET PO SCH (09:56)
[2024-02-12] MEDS: BUDESONIDE/FORMETEROL FUMARATE 160/4.5 mcg INHALER IH SCH (12:01)
[2024-02-12] MEDS: methylPREDNISolone NA SUCC 40 MG/1 ML VIAL IVPUSH SCH (12:29)
[2024-02-12] MEDS: POTASSIUM CHLORIDE TABS 20 MEQ TABLET.ER (FP) PO SCH (12:30)
[2024-02-12] MEDS: ALBUTEROL SO4 2.5/IPRATROPIUM 0.5 INH SOL 3 ML VIAL.NEB. NEB SCH (14:25)
[2024-02-13] MEDS: POTASSIUM CHLORIDE TABS 10 MEQ TABLET.ER (FP) PO SCH (10:03)
[2024-02-13] MEDS: TORSEMIDE 20 MG TABLET (FP) PO SCH (10:04)
[2024-02-13] MEDS: POTASSIUM CHLORIDE TABS 20 MEQ TABLET.ER (FP) PO SCH (10:42)
[2024-02-14 09:38] VITALS: RESP 20
[2024-02-14] MEDS: predniSONE 20 MG TABLET (UD) PO SCH (10:50)
[2024-02-14 13:30] LABS: BASO % 0.1 % (0-2.0); HEMATOCRIT 43.1 % (32.4-45.2); HEMOGLOBIN 13.5 GM/dL (10.7-15.3); LYMPH % 6.8 % (8-40); MCH 31.5 pg (25.7-33.7); MCHC 31.4 g/dl (32.0-36.0); MEAN CELL VOLUME 100.5 fl (80-96); MEAN PLT VOLUME 9.3 fl (7.5-11.1); MONO % 10.8 % (3.8-10.2); NEUT % 82.3 % (42.8-82.8); PLATELET COUNT 178 10^3/uL (134-434); RBC 4.29 M/mm3 (3.60-5.2); RDW 16.8 % (11.6-15.6); WHITE BLOOD COUNT 13.7 K/mm3 (4.0-10.0)
[2024-02-14 13:45] LABS: POTASSIUM 3.9 mmol/L (3.5-5.1)
[2024-02-14 13:48] LABS: ALBUMIN 3.6 g/dl (3.4-5.0); BLOOD UREA NITROGEN 24.8 mg/dL (7-18); CALCIUM 9.5 mg/dL (8.5-10.1); MAGNESIUM 1.7 mg/dL (1.8-2.4)
[2024-02-14 13:53] LABS: BILIRUBIN,TOTAL 1.3 mg/dL (0.2-1); TOT PROT 8.7 g/dl (6.4-8.2)
[2024-02-14 14:24] VITALS: BP 111/80; PULSE 92; TEMP 97.5
[2024-02-15] MEDS ORDERED: POTASSIUM CHLORIDE TABS 10 MEQ TABLET.ER (FP) PO SCH (10:00)
== END 2024-02-14 15:04 | disposition home or self-care (01) | DRG 139 ==
LOC: JER 04:30 → JERBED 12:01 → J8W 21:30
PROVIDERS: ADMIT Internal Medicine; ATTEND Nurse Practitioner Acute Care
DX: J18.9 Pneumonia, unspecified organism (principal); I27.20 Pulmonary hypertension, unspecified; J44.0 Chronic obstructive pulmonary disease with (acute) lower respiratory infection; I48.91 Unspecified atrial fibrillation; J44.9 Chronic obstructive pulmonary disease, unspecified; M20.002 Unspecified deformity of left finger(s); I11.0 Hypertensive heart disease with heart failure; I50.9 Heart failure, unspecified; I48.92 Unspecified atrial flutter; I25.10 Atherosclerotic heart disease of native coronary artery without angina pectoris; Z95.1 Presence of aortocoronary bypass graft; Z86.711 Personal history of pulmonary embolism
CPT/HCPCS: 0241U-QW; 36415; 71046-TC-FY; 71275-TC; 80048; 80053; 83735; 84484; 85025; 85610; 85730; 87070; 87205; 93005; 93010; 94640; 94761; 97116-GP; 97161-GP; 99285-25; Q9967